=== PATIENT | female | born 1955 | race Caucasian/White ===

== ENCOUNTER → 2016-07-19 | Outpatient (CLI) | payer BC | LOC: RAD 08:16 | PROVIDERS: ATTEND Family Medicine | DX: Z12.31 Encounter for screening mammogram for malignant neoplasm of breast (principal) ==

== ENCOUNTER 2016-08-02 06:24 | Day surgery (SDC) | payer BC ==
[~2016-08-02] VITALS: Ht 160 cm; Wt 64.5 kg
[~2016-08-02 06:24] MED LIST: LACTATED RINGERS 1,000 ML IV SCH; SODIUM CHLORIDE FLUSH 3 ML SYR IV PRN
[2016-08-02 06:35] VITALS: BP 120/80
[2016-08-02] MEDS ORDERED: PROPOFOL 20 ML IV ONE (07:12)
[2016-08-02] MEDS ORDERED: MIDAZOLAM 2 MG/2 ML (VERSED) VIAL ONE (07:12)
[2016-08-02] MEDS ORDERED: ALFENTANIL 500 MCG/ML (ALFENTA) 5 ML AMP IV ONE (07:12)
[2016-08-02 08:04] VITALS: BP 103/75
[2016-08-02 08:35] VITALS: BP 103/57
== END 2016-08-02 08:30 | disposition home or self-care (01) ==
LOC: ASC 06:24
PROVIDERS: ATTEND Surgery
DX: Z12.11 Encounter for screening for malignant neoplasm of colon (principal); K62.1 Rectal polyp; K57.30 Diverticulosis of large intestine without perforation or abscess without bleeding; Z83.71 Family history of colonic polyps; E03.9 Hypothyroidism, unspecified; Z87.891 Personal history of nicotine dependence
CPT/HCPCS: 45380; J2250; J7120